=== PATIENT | male | born 1965 | race Caucasian/White ===

== ENCOUNTER 2021-07-09 11:38 | Emergency (ER) | payer MEDICAID ==
[~2021-07-09] VITALS: Ht 178 cm; Wt 79.3 kg
[2021-07-09] MEDS ORDERED: ONDANSETRON 4 MG/2 ML (SDV) Z0FRAN IVP ONE (12:30)
[2021-07-09] MEDS ORDERED: NS IV 1000 ML 1,000 ML IV SCH (12:30)
[2021-07-09 12:31] LABS: BASOPHILS % (AUTO) 0 % (0-10); EOSINOPHILS # (AUTO) 0.1 10^3/uL (0.0-0.3); EOSINOPHILS % (AUTO) 2 % (0-10); HEMATOCRIT 49 % (40-54); HEMOGLOBIN 16.1 g/dL (13.3-17.7); LYMPHOCYTES # (AUTO) 0.9 10^3/uL (1.0-4.0); LYMPHOCYTES % (AUTO) 17 % (12-44); MEAN CORPUSCULAR HEMOGLOBIN 30 pg (25-34); MEAN CORPUSCULAR HGB CONC 33 g/dL (32-36); MEAN CORPUSCULAR VOLUME 91 fL (80-99); MEAN PLATELET VOLUME 9.9 fL (9.0-12.2); MONOCYTES # (AUTO) 0.8 10^3/uL (0.0-1.0); MONOCYTES % (AUTO) 17 % (0-12); NEUTROPHILS # (AUTO) 3.1 10^3/uL (1.8-7.8); NEUTROPHILS % (AUTO) 62 % (42-75); PLATELET COUNT 185 10^3/uL (130-400); WHITE BLOOD COUNT 4.9 10^3/uL (4.3-11.0)
[2021-07-09 12:33] LABS: ALBUMIN 3.9 GM/DL (3.2-4.5); POTASSIUM 3.8 MMOL/L (3.6-5.0)
[2021-07-09 12:34] LABS: CALCIUM 8.5 MG/DL (8.5-10.1)
[2021-07-09 12:36] LABS: TOTAL PROTEIN 6.6 GM/DL (6.4-8.2)
[2021-07-09 12:37] LABS: BILIRUBIN,TOTAL 0.4 MG/DL (0.1-1.0)
[2021-07-09 12:39] LABS: CREATININE SERUM 0.84 MG/DL (0.60-1.30)
--- NOTE | 2021-07-09 12:41 | ED General ---
General Chief Complaint: Fever-Adult/Adol Stated Complaint: WEAK,N/V,DIARRHEA,FEVER, Nursing Triage Note: n/v/d verbaizes 10 diarrhea stools in last 24 hrs. states has been going on for 5 days. noticed fever of 101 yesterday, states feels achy all over. Source of Information: Patient Exam Limitations: No Limitations (HALEIGH BRAND APRN) History of Present Illness Date Seen by Provider: Jul 09, 2021 Time Seen by Provider: 12:15 Initial Comments This is a 55-year-old male who presented to the ER via POV with complaints of diarrhea for the past 5 days. States that he has had multiple episodes of diarrhea nonstop. He developed nausea and vomiting yesterday along with a temperature of 101. He does report chills. Denies abdominal pain at this time states that he had been having some cramping pain over the past few days. Feels "dehydrated and weak". No known ill exposures. No recent travel. States that his stool is green liquid. Denies bloody or dark stools. Denies any recent antibiotics. Timing/Duration: 4-5 Days Severity: Moderate (HALEIGH BRAND APRN) Allergies and Home Medications Allergies Coded Allergies: No Known Drug Allergies (Unverified , 07/09/21) Patient Home Medication List Home Medication List Reviewed: Yes (HALEIGH BRAND APRN) Cefuroxime Axetil (Cefuroxime) 250 Mg Tablet, 250 MG PO BID Prescribed by: HALEIGH BRAND on 07/09/21 9068 Review of Systems Review of Systems Constitutional: chills, fever, malaise, weakness EENTM: no symptoms reported Respiratory: no symptoms reported Cardiovascular: no symptoms reported Gastrointestinal: No abdominal pain; diarrhea, nausea, vomiting Genitourinary: decreased output; No discharge; dysuria; No frequency, No hematuria Musculoskeletal: no symptoms reported Skin: no symptoms reported Psychiatric/Neurological: No Symptoms Reported Hematologic/Lymphatic: No Symptoms Reported Immunological/Allergic: no symptoms reported (HALEIGH BRAND APRN) Physical Exam Vital Signs Vital Signs - First Documented 07/09/21 11:50 Temp 36.8 Pulse 82 Resp 18 B/P (MAP) 120/81 (94) Pulse Ox 100 O2 Delivery Room Air (ISSA NEAL MD) Vital Signs Capillary Refill : Less Than 3 Seconds (HALEIGH BRAND APRN) Height, Weight, BMI Height: '" Weight: lbs. oz. kg; 25.00 BMI Method: General Appearance: No Apparent Distress, WD/WN Eyes: Bilateral Eye Normal Inspection, Bilateral Eye PERRL, Bilateral Eye EOMI HEENT: PERRL/EOMI, Normal ENT Inspection, Pharynx Normal Neck: Full Range of Motion, Normal Inspection Respiratory: Lungs Clear, Normal Breath Sounds, No Accessory Muscle Use, No Respiratory Distress Cardiovascular: Regular Rate, Rhythm, No Edema, No Gallop, No Murmur Gastrointestinal: Normal Bowel Sounds, No Organomegaly, Non Tender, Soft; No Distended, No Guarding Back: Normal Inspection, No CVA Tenderness Extremity: Normal Inspection, Normal Range of Motion Neurologic/Psychiatric: Alert, Oriented x3, No Motor/Sensory Deficits, Normal M ood/Affect, cooker casing II-XII Norm as Tested Skin: Normal Color, Warm/Dry (HALEIGH BRNAD APRN) Progress/Results/Core Measures Suspected Sepsis SIRS Temperature: Pulse: 82 Respiratory Rate: 18 Laboratory Tests 07/09/21 12:05: White Blood Count 4.9 Blood Pressure 120 /81 Mean: 94 Laboratory Tests 07/09/21 12:05: Creatinine 0.84, Platelet Count 185, Total Bilirubin 0.4 (HALEIGH BRAND APRN) Results/Orders Lab Results Laboratory Tests Test 07/09/21 12:05 07/09/21 12:15 07/09/21 12:45 Range/Units White Blood Count 4.9 4.3-11.0 10^3/uL Red Blood Count 5.40 4.30-5.52 10^6/uL Hemoglobin 16.1 13.3-17.7 g/dL Hematocrit 49 40-54 % Mean Corpuscular Volume 91 80-99 fL Mean Corpuscular Hemoglobin 30 25-34 pg Mean Corpuscular Hemoglobin Concent 33 32-36 g/dL Red Cell Distribution Width 12.3 10.0-14.5 % Platelet Count 185 130-400 10^3/uL Mean Platelet Volume 9.9 9.0-12.2 fL Immature Granulocyte % (Auto) 1 % Neutrophils (%) (Auto) 62 42-75 % Lymphocytes (%) (Auto) 17 12-44 % Monocytes (%) (Auto) 17 H 0-12 % Eosinophils (%) (Auto) 2 0-10 % Basophils (%) (Auto) 0 0-10 % Neutrophils # (Auto) 3.1 1.8-7.8 10^3/uL Lymphocytes # (Auto) 0.9 L 1.0-4.0 10^3/uL Monocytes # (Auto) 0.8 0.0-1.0 10^3/uL Eosinophils # (Auto) 0.1 0.0-0.3 10^3/uL Basophils # (Auto) 0.0 0.0-0.1 10^3/uL Immature Granulocyte # (Auto) 0.1 0.0-0.1 10^3/uL Sodium Level 138 135-145 MMOL/L Potassium Level 3.8 3.6-5.0 MMOL/L Chloride Level 108 H 98-107 MMOL/L Carbon Dioxide Level 20 L 21-32 MMOL/L Anion Gap 10 5-14 MMOL/L Blood Urea Nitrogen 16 7-18 MG/DL Creatinine 0.84 0.60-1.30 MG/DL Estimat Glomerular Filtration Rate 103 BUN/Creatinine Ratio 19 Glucose Level 91 70-105 MG/DL Calcium Level 8.5 8.5-10.1 MG/DL Corrected Calcium 8.6 8.5-10.1 MG/DL Total Bilirubin 0.4 0.1-1.0 MG/DL Aspartate Amino Transf (AST/SGOT) 42 H 5-34 U/L Alanine Aminotransferase (ALT/SGPT) 47 0-55 U/L Alkaline Phosphatase 59 40-136 U/L Total Protein 6.6 6.4-8.2 GM/DL Albumin 3.9 3.2-4.5 GM/DL Lipase 27 8-78 U/L Influenza Type A (RT-PCR) Not Detected Not Detecte Influenza Type B (RT-PCR) Not Detected Not Detecte SARS-CoV-2 RNA (RT-PCR) Not Detected Not Detecte Urine Color YELLOW Urine Clarity CLEAR Urine pH 6.0 5-9 Urine Specific Ramer >=1.030 1.016-1.022 Urine Protein 1+ H NEGATIVE Urine Glucose (UA) NEGATIVE NEGATIVE Urine Ketones NEGATIVE NEGATIVE Urine Nitrite NEGATIVE NEGATIVE Urine Bilirubin NEGATIVE NEGATIVE Urine Urobilinogen 0.2 < = 1.0 MG/DL Urine Leukocyte Esterase NEGATIVE NEGATIVE Urine RBC (Auto) TRACE-I H NEGATIVE Urine RBC 2-5 H /HPF Urine WBC 5-10 H /HPF Urine Crystals NONE /LPF Urine Bacteria FEW H /HPF Urine Casts NONE /LPF Urine Mucus SMALL H /LPF Urine Other ABUNDANT SPERM /HPF Urine Culture Indicated YES (ISSA NEAL MD) Vital Signs/I&O 07/09/21 07/09/21 11:50 14:52 Temp 36.8 Pulse 82 67 Resp 18 18 B/P (MAP) 120/81 (94) 128/73 Pulse Ox 100 99 O2 Delivery Room Air Room Air 07/10/21 00:00 Intake Total 1051 ml Balance 1051 ml (ISSA NEAL MD) Vital Signs/I&O Capillary Refill : Less Than 3 Seconds (HALEIGH BRAND APRN) Blood Pressure Mean: 94 Progress Note : Progress Note Patient examined and in no acute distress. Vital signs stable at this time. We will go ahead and obtain basic labs, lipase start IV fluids and give some Zofran. With his persistent diarrhea will obtain imaging to evaluate for any infectious causes. Labs and imaging unremarkable. Discharge POC reviewed and he is agreeable with plan. (HALEIGH BRAND APRN) Diagnostic Imaging Diagonstic Imaging: CT Plain Films/CT/US/NM/MRI: abdomen Comments [facility], [place] NAME: MIESHA MESA [facility] REC#: [id number] PT STATUS: REG ER : 1965 PHYSICIAN: HALEIGH BRAND APRN ADMIT DATE: 07/09/21/ER Draft Date of Exam:07/09/21 CT ABDOMEN/PELVIS W PROCEDURE: CT abdomen and pelvis with contrast. TECHNIQUE: Multiple contiguous axial images were obtained through the abdomen and pelvis after administration of intravenous contrast. Auto Exposure Controls were utilized during the CT exam to meet ALARA standards for radiation dose reduction. All CT scans use one or more of the following dose optimizing techniques: Automated exposure control, MA and/or KvP adjustment based on patient size and exam type or iterative reconstruction. INDICATION: Nausea, vomiting, and diarrhea. COMPARISON: No prior studies are available for comparison. FINDINGS: The lung bases are clear. The liver and gallbladder are unremarkable. There is no biliary ductal dilatation. Pancreas and spleen are unremarkable. The right adrenal gland is unremarkable. There is a low-density lesion in the left adrenal gland measuring 2.3 cm suggestive of an adenoma. Kidneys are unremarkable apart from a small cortical low-attenuation lesion in the right kidney measuring 15 mm. This most likely represents a cyst. The aorta is normal in caliber. No aneurysm is identified. The bowel loops appear to be of normal caliber and nonobstructed. No definite inflammatory changes are identified. No free fluid or fluid collection is seen. Appendix is visualized and unremarkable. The bladder is decompressed. Prostate is unremarkable. Bony structures are nonacute. IMPRESSION: 1. Probable left adrenal adenoma and right renal cyst. 2. No acute feature in the abdomen or pelvis is identified. Dictated on workstation # [id number] Dict: 07/09/21 1340 Trans: 07/09/21 1345 [id number] Interpreted by: TEE PATTON MD Electronically signed by: Reviewed: Reviewed by Me (HALEIGH BRAND APRN) Departure Impression Primary Impression: Diarrhea Additional Impression: UTI (urinary tract infection) Disposition: 01 HOME, SELF-CARE Condition: Stable Departure-Patient Inst. Decision time for Depature: 13:54 (HALEIGH BRAND APRN) Referrals: NO,LOCAL PHYSICIAN (PCP/Family) Primary Care Physician Patient Instructions: Urinary Tract Infection, Adult ED, Diarrhea, Adult ED Add. Discharge Instructions: Plan: 1. Continue to drink plenty of fluids including electrolyte drinks. 2. You can buy over the counter probiotic and take daily as directed. 3. May take Zofran 4mg by mouth every 6 hours as needed for nausea. 4. Avoid: dairy products, fatty foods, high-fiber foods or highly seasoned foods for a few days. 5. Follow up with your doctor if your symptoms persist. 6. Return for any new, concerning, or worsening symptoms. All discharge instructions reviewed with patient and/or family. Voiced understanding. Scripts Cefuroxime Axetil (Cefuroxime) 250 Mg Tablet 250 MG PO BID for 10 Days, #10 TAB 0 Refills Prov: HALEIGH BRAND APRN 07/09/21 ATTENDING PHYSICIAN NOTE: I was physically present as attending physician in the emergency department during the care of this patient, but I was not directly involved in the decision making or delivery of care for this patient. (ISSA NEAL MD) HALEIGH BRAND BATCH RECORDS CLERK Jul 09, 2021 12:41 ISSA NEAL MD Jul 10, 2021 06:26
[2021-07-09] MEDS ORDERED: CATHETER FLUSH 10 ML SYR IV PRN (12:45)
[2021-07-09] MEDS ORDERED: IOHEXOL 350 MG/ML 100 ML (OMNIPAQUE 350) VIAL IV ONE (12:45)
[2021-07-09] MEDS ORDERED: HOLD METFORMIN - RECEIVED CONTRAST 20 ML VIAL IV SCH (12:45)
[2021-07-09] MEDS ORDERED: NS 100 ML (IVPB) BAG IV ONE (12:45)
[2021-07-09 12:51] LABS: BILIRUBIN,URINE NEGATIVE (NEGATIVE); CLARITY,URINE CLEAR; COLOR,URINE YELLOW; GLUCOSE, URINE (UA) NEGATIVE (NEGATIVE); KETONES,URINE NEGATIVE (NEGATIVE); LEUKOCYTE ESTERASE ,URINE NEGATIVE (NEGATIVE); NITRITE,URINE NEGATIVE (NEGATIVE); PROTEIN,URINE 1+ (NEGATIVE)
[2021-07-09 13:24] LABS: BACTERIA,URINE FEW /HPF
[2021-07-09 13:25] LABS: URINE OTHER ABUNDANT SPERM /HPF
--- NOTE | 2021-07-09 13:45 | Diagnostic Imaging Report ---
PROCEDURE: CT abdomen and pelvis with contrast. TECHNIQUE: Multiple contiguous axial images were obtained through the abdomen and pelvis after administration of intravenous contrast. Auto Exposure Controls were utilized during the CT exam to meet ALARA standards for radiation dose reduction. All CT scans use one or more of the following dose optimizing techniques: Automated exposure control, MA and/or KvP adjustment based on patient size and exam type or iterative reconstruction. INDICATION: Nausea, vomiting, and diarrhea. COMPARISON: No prior studies are available for comparison. FINDINGS: The lung bases are clear. The liver and gallbladder are unremarkable. There is no biliary ductal dilatation. Pancreas and spleen are unremarkable. The right adrenal gland is unremarkable. There is a low-density lesion in the left adrenal gland measuring 2.3 cm suggestive of an adenoma. Kidneys are unremarkable apart from a small cortical low-attenuation lesion in the right kidney measuring 15 mm. This most likely represents a cyst. The aorta is normal in caliber. No aneurysm is identified. The bowel loops appear to be of normal caliber and nonobstructed. No definite inflammatory changes are identified. No free fluid or fluid collection is seen. Appendix is visualized and unremarkable. The bladder is decompressed. Prostate is unremarkable. Bony structures are nonacute. IMPRESSION: 1. Probable left adrenal adenoma and right renal cyst. 2. No acute feature in the abdomen or pelvis is identified. Dictated by: Dictated on workstation # [id number]
[2021-07-09] MEDS ORDERED: CEFU250T80 PO (13:58)
[2021-07-09] MEDS ORDERED: cefTRIAXone 1 GM PRE-MIX 50 ML IV ONE (14:00)
[2021-07-09 14:52] VITALS: BP 128/73
== END 2021-07-09 14:52 | disposition home or self-care (01) ==
LOC: ER 11:41
DX: R19.7 Diarrhea, unspecified (principal); N39.0 Urinary tract infection, site not specified; Z20.822 Contact with and (suspected) exposure to COVID-19
CPT/HCPCS: 36415; 74177; 80053; 81000; 83690; 85025; 87088; 87636

== ENCOUNTER 2022-02-03 13:01 | Emergency (ER) | payer MEDICAID ==
[~2022-02-03] VITALS: Ht 176 cm; Wt 78.0 kg
[~2022-02-03 13:01] MED LIST: CEFU250T80 PO
--- NOTE | 2022-02-03 13:44 | ED Neck-Back Pain/Injury ---
General Chief Complaint: Head/Cervical Problems Stated Complaint: NECK LOCKED UP Nursing Triage Note: pt states his neck is locked up. hx of surgery on neck Source of Information: Patient Exam Limitations: No Limitations (LYNETTE HAMPTON) History of Present Illness Date Seen by Provider: Feb 03, 2022 Time Seen by Provider: 13:24 Initial Comments Patient is a 56 y/o M with history of neck surgery who presents today with CC of neck pain and spasm onset 3 days ago. He reports he has been having sharp and constant neck pain for the last few days which started with a headache at the base of his neck. He states it radiates down into both shoulders, worse on the right. States it is a 10/10 and unbearable. He also states that he feels like the back of his neck is numb and "tingling". He notes he has been using Advil for the pain but it has not helped. He was not able to sleep due to the discomfort last night. He also c/o double vision since last night. Patient reports he had 2 vertebrae replaced and had some screws placed around 2011 in [place], [place]. States he has had episodes of pain/spasm like this before and was told he had some screws loose after getting an X ray done. Location: C-Spine Timing/Duration: 2-3 Days Severity: Severe Radiation: Other (bilateral shoulders ) Modifying Factors: Improves With Movement (PAPI HAMPTONA) Allergies and Home Medications Allergies Coded Allergies: No Known Drug Allergies (Unverified , 07/09/21) Patient Home Medication List Home Medication List Reviewed: Yes (LIBAN POON MD) Cefuroxime Axetil (Cefuroxime) 250 Mg Tablet, 250 MG PO BID Prescribed by: HALEIGH BRAND on 07/09/21 1358 Methocarbamol (Methocarbamol) 750 Mg Tablet, 1,500 MG PO Q6H PRN for neck spasm Prescribed by: LIBAN POON on 02/03/22 3435 Review of Systems EENTM: double vision Gastrointestinal: No nausea, No vomiting Musculoskeletal: neck pain (spasm) Psychiatric/Neurological: Headache, Numbness, Tingling (MEMO,LYNETTE) Constitutional: see HPI (LIBAN POON MD) All Other Systems Reviewed Negative Unless Noted: Yes (LIBAN POON MD) Past Bevpzzn-Oyajrl-Byfpef Hx Patient Social History Tobacco Use?: Yes Tobacco type used: Cigarettes Smoking Status: Current Everyday Smoker Substance use?: No Alcohol Use?: Yes Alcohol type: Beer (MEMO,LYNETTE) Immunizations Up To Date First/Initial COVID19 Vaccinat: 2020 Second COVID19 Vaccination Naeem: 2020 Third COVID19 Vaccination Date: 2020 (AUGIEAO,LYNETTE) Past Medical History Surgery/Hospitalization HX: neck surgery, rt wrist fx, veto in rt lower leg, (SUBBARAO,LYNETTE) Physical Exam Vital Signs Vital Signs - First Documented 02/03/22 13:06 Temp 36.4 Pulse 74 Resp 18 B/P (MAP) 135/85 (102) Pulse Ox 96 O2 Delivery Room Air (LIBAN POON MD) Vital Signs Capillary Refill : Less Than 3 Seconds (BHAVINBARANNA,LYNETTE) Height, Weight, BMI Height: '" Weight: lbs. oz. kg; 25.00 BMI Method: General Appearance: WD/WN, Mild Distress Neck: Limited Range of Motion (unable to flex, extend, or rotate the head), Other (mild tenderness to palpation of base of the head ) Cardiovascular: Regular Rate, Rhythm, No Murmur Respiratory: Chest Non Tender, Lungs Clear, Normal Breath Sounds Extremity: Normal Range of Motion, Non Tender, No Calf Tenderness (BHAVINBARAO,LYNETTE) Neurologic/Psychiatric: Alert, Oriented x3, No Motor/Sensory Deficits, Normal Mood/Affect, spot worker II-XII Norm as Tested (LIBAN POON MD) Progress/Results/Core Measures Results/Orders My Orders Orders - LIBAN POON MD Orphenadrine Inj (Ed Only) (Norflex Inje (02/03/22 13:45) Ketorolac Injection (Toradol Injection) (02/03/22 13:45) Hydrocodone/Apap 5/325 Tablet (Lortab 5 (02/03/22 13:45) (LIBAN POON MD) Medications Given in ED (LIBAN POON MD) Vital Signs/I&O 02/03/22 02/03/22 13:06 15:05 Temp 36.4 Pulse 74 Resp 18 B/P (MAP) 135/85 (102) 152/102 Pulse Ox 96 O2 Delivery Room Air (LIBAN POON MD) Blood Pressure Mean: 102 Progress Progress Note : Time: 14:37 Progress Note Patient seen and examined by me. I have reviewed the medical student's documentation and assessment and agree. 56-year-old male with pain in the base of his neck with an accompanying headache onset over 3 days. Right greater than left paraspinous muscle tenderness. Limited range of motion due to pain. No trauma reported. Took ibuprofen without relief of symptoms. Previous neck surgery. Works in construction. Denies any strenuous activity heavy lifting. Any movement of the head makes his neck "spasm". Physical exam remarkable for point tenderness at the base of the skull more right greater than left. Neuro intact. Normal strength and sensation. No bony midline tenderness. No upper motor neuron findings. Patient is treated in the emergency department with Norflex, Toradol and a hydrocodone. I then did trigger point injection of 0.5% Sensorcaine and 1% plain lidocaine. 3 cc. Some relief of symptoms. Will discharge to home on higher dose of ibuprofen and some Robaxin. Follow-up with primary care. No clinical or objective findings to warrant imaging studies such as CT scan of the neck/cervical spine. (LIBAN POON MD) Departure Impression Primary Impression: Cervicalgia of ttvducro-mxsygex-dyydg region Disposition: 01 HOME, SELF-CARE Condition: Improved Departure-Patient Inst. Decision time for Depature: 14:55 (LIBAN POON MD) Referrals: [facility],LOCAL PHYSICIAN (PCP) Primary Care Physician Patient Instructions: Neck Pain ED Add. Discharge Instructions: Take [id number] ibuprofen, 3 tablets which is 600 mg every 6 hours with food as needed for pain. I have prescribed you some muscle relaxants, you can take 1-2 every 6 hours as needed for spasms. This medication may make you little sleepy. Do not drive and take it. Follow-up with your primary care physician for more evaluation and management of your neck pain. If you develop any worsening symptoms especially weakness or worsening numbness/tingling in your arms or hands, please come back to the emergency room for reevaluation. Scripts Methocarbamol (Methocarbamol) 750 Mg Tablet 1500 MG PO Q6H PRN for neck spasm, #20 TAB Prov: LIBAN POON MD 02/03/22 Work/School Note: Work Release Form Date Seen in the Emergency Department: Feb 03, 2022 Return to Work: Feb 04, 2022 Verification and Attestation of Medical Student E/M Service A medical student performed and documented this service in my presence. I reviewed and verified all information documented by the medical student and made modifications to such information, when appropriate. I personally performed the physical exam and medical decision making. Liban Poon, Feb 05, 2022,17:26 (LIBAN POON MD) LYNETTE HAMPTON Feb 03, 2022 13:44 LIBAN POON MD Feb 03, 2022 14:37
[2022-02-03] MEDS ORDERED: HYDROcodone/APAP 5 MG/325 MG (LORTAB) TAB PO ONE (13:45)
[2022-02-03] MEDS ORDERED: KETOROLAC 60 MG/2 ML VIAL IM ONE (13:45)
[2022-02-03] MEDS ORDERED: ORPHENADRINE 60 MG/2 ML (NORFLEX) AMP (ED ONLY) IM ONE (13:45)
[2022-02-03] MEDS ORDERED: METH-732 PO (14:57)
[2022-02-03 15:05] VITALS: BP 152/102
== END 2022-02-03 15:05 | disposition home or self-care (01) ==
LOC: EDUNIT# 13:01 → ER 13:03
DX: M54.2 Cervicalgia (principal); R51.9 Headache, unspecified; F17.210 Nicotine dependence, cigarettes, uncomplicated
CPT/HCPCS: 99284